=== PATIENT | female | born 1975 | race Caucasian/White ===

== ENCOUNTER 2018-04-06 18:24 | Emergency (ER) | payer BC, OTHER ==
[~2018-04-06] VITALS: Ht 167.6 cm; Wt 67.6 kg
[2018-04-06] MEDS ORDERED: SODIUM CHLORIDE 0.9% 1000ML 1,000 ML IV STA (19:57)
--- NOTE | 2018-04-06 21:23 | Diagnostic Imaging Report ---
EXAM: CT ABDOMEN AND PELVIS WITH IV CONTRAST INDICATION: Lower abdominal pain for 2 weeks COMPARISON: None TECHNIQUE: The abdomen and pelvis were scanned using a multidetector helical scanner. Coronal and sagittal reformations were obtained. Dose modulation, iterative reconstruction, and/or weight based adjustment of the mA/kV was utilized to reduce the radiation dose to as low as reasonably achievable. Routine protocol performed. IV Contrast: 100 cc Isovue-300 Oral Contrast: None CTDIvol has been reviewed. It is below the limits set by the Radiation Protocol Committee (RPC). FINDINGS: LOWER THORAX: No consolidations LIVER: No masses BILIARY: Normal gallbladder. No ductal dilation. SPLEEN: No masses PANCREAS: No masses ADRENALS: No nodules KIDNEYS: No enhancing masses. No hydronephrosis. GI TRACT: No wall thickening or obstruction. Normal appendix. VESSELS: Unremarkable PERITONEUM/RETROPERITONEUM: No free air or fluid LYMPH NODES: No lymphadenopathy REPRODUCTIVE ORGANS: Normal BLADDER: Normal SOFT TISSUES: Normal BONES: No suspicious bone lesions. Sclerotic density measuring 1.2 cm and the left iliac consistent with a bone island. IMPRESSION: Normal CT of the abdomen and pelvis. Signed by: Dr. Viola Calhoun M.D. on 04/06/2018 9:20 PM
== END 2018-04-06 21:51 | disposition home or self-care (01) ==
LOC: FSED 18:24
DX: R10.84 Generalized abdominal pain (principal); N80.9 Endometriosis, unspecified
CPT/HCPCS: 74177; 80053; 81003; 81025; 85025; 99284; J7030

== ENCOUNTER 2021-02-11 19:11 | Emergency (ER) | payer OTHER ==
[~2021-02-11] VITALS: Ht 167.6 cm; Wt 59.9 kg
== END 2021-02-11 20:07 | disposition home or self-care (01) ==
LOC: FSED 19:49
DX: S13.4XXA Sprain of ligaments of cervical spine, initial encounter (principal); S39.091A Other injury of muscle, fascia and tendon of abdomen, initial encounter; V43.52XA Car driver injured in collision with other type car in traffic accident, initial encounter; Y92.488 Other paved roadways as the place of occurrence of the external cause
CPT/HCPCS: 99283

== ENCOUNTER 2021-04-22 17:29 | Emergency (ER) | payer OTHER ==
[~2021-04-22] VITALS: Ht 167.6 cm; Wt 59.9 kg
[2021-04-22] MEDS ORDERED: SODIUM CHLORIDE 0.9% 1000ML 1,000 ML IV STA (18:33)
[2021-04-22] MEDS ORDERED: SODIUM CHLORIDE 0.9% 1000ML 1,000 ML ONE (18:47)
== END 2021-04-22 20:00 | disposition home or self-care (01) ==
LOC: FSED 17:54
DX: R55 Syncope and collapse (principal); R53.83 Other fatigue; F32.A Depression, unspecified
CPT/HCPCS: 80048; 80076; 85025; 99283; J7030

== ENCOUNTER 2022-02-22 14:00 | Emergency (ER) | payer OTHER ==
[~2022-02-22] VITALS: Ht 167.6 cm; Wt 56.7 kg
[2022-02-22] MEDS ORDERED: CYCLOBENZAPRINE5 MG PO (16:41)
== END 2022-02-22 16:50 | disposition home or self-care (01) ==
LOC: FSED 14:59
DX: S40.012A Contusion of left shoulder, initial encounter (principal); M54.2 Cervicalgia; M79.18 Myalgia, other site; W18.2XXA Fall in (into) shower or empty bathtub, initial encounter; Y93.E1 Activity, personal bathing and showering; Y92.012 Bathroom of single-family (private) house as the place of occurrence of the external cause; Z88.6 Allergy status to analgesic agent; Z91.041 Radiographic dye allergy status; Z88.5 Allergy status to narcotic agent; Z88.8 Allergy status to other drugs, medicaments and biological substances; Z91.018 Allergy to other foods; Z91.048 Other nonmedicinal substance allergy status; Z91.013 Allergy to seafood
CPT/HCPCS: 72170; 99283